=== PATIENT | male | born 2000 | race Caucasian/White ===

== ENCOUNTER → 2025-04-03 | Outpatient (CLI) | payer MEDICARE, MEDICAID, SELFPAY ==
--- NOTE | 2025-04-03 16:15 | XR_ITS ---
Examination: Sacrum and coccyx 3 views TECHNIQUE: AP and inclined AP lateral sacrum and coccyx 3 views Date and time: April 03, 2025, 1631 hours INDICATIONS: Sacral pain months. FINDINGS: Satisfactory alignment sacral and coccygeal segments No fracture No cortical bone destruction IMPRESSION: No fracture or dislocation
--- NOTE | 2025-04-03 16:15 | XR_ITS ---
Examination: Lumbar spine, 5 views Technique: Lumbar spine AP, lateral, coned lateral lower lumbar spine, bilateral obliques 5 views Exam date and time: April 03, 2025 1619 hours INDICATIONS: Lower back pain months FINDINGS: Adequate alignment lumbar vertebral bodies No lumbar fracture Mild disc narrowing L5-S1 No spondylolisthesis IMPRESSION: Normal lumbar fracture. Mild disc narrowing L5-S1
== END | disposition home or self-care (01) ==
LOC: CDIM 16:10
PROVIDERS: PCP Nurse Practitioner Family; Referring Provider Nurse Practitioner Family; Visit Provider Nurse Practitioner Family
DX: M48.07 Spinal stenosis, lumbosacral region (principal); M53.3 Sacrococcygeal disorders, not elsewhere classified
CPT/HCPCS: 72110; 72220